=== PATIENT | female | born 1970 | race Caucasian/White ===

== ENCOUNTER 2017-04-20 10:44 | Emergency (ER) | payer OTHER ==
[2017-04-20 11:13] VITALS: BP 123/76
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
== END 2017-04-20 12:01 | disposition home or self-care (01) ==
LOC: ED 10:44
DX: T23.231A Burn of second degree of multiple right fingers (nail), not including thumb, initial encounter (principal); X19.XXXA Contact with other heat and hot substances, initial encounter; Y93.G3 Activity, cooking and baking; Y92.9 Unspecified place or not applicable; Y99.9 Unspecified external cause status; Z87.891 Personal history of nicotine dependence
CPT/HCPCS: 99282